=== PATIENT | male | born 1935 | race Two or more races ===

== ENCOUNTER 2017-08-30 11:52 | Inpatient (IN) | payer OTHER ==
[~2017-08-30] VITALS: Ht 182.9 cm; Wt 122.0 kg
[~2017-08-30 11:52] MED LIST: AVODART0.5 MG PO; CIPRO500 MG PO; FOSINOPRIL SODI20 MG PO; TRIAMTERENE/HCT1 CA1 PO
[2017-08-30] MEDS ORDERED: LASIX20 MG (12:22)
[2017-08-30] MEDS ORDERED: TOPROL XL25 M1 (12:23)
== END 2017-09-28 16:21 | disposition expired | DRG 871 ==
LOC: ER 11:52 → ICU-2 16:07 → ICU 09-01 21:23 → MEDJ 09-10 13:41 → MEDI 09-10 13:41 → MEDJ 09-28 16:21
PROC: 4A033R1 Measurement of Arterial Saturation, Peripheral, Percutaneous Approach (ICD-10-PCS; principal; 2017-08-30)
PROC: 3E0F7GC Introduction of Other Therapeutic Substance into Respiratory Tract, Via Natural or Artificial Opening (ICD-10-PCS; 2017-08-30)
PROC: BT43ZZZ Ultrasonography of Bilateral Kidneys (ICD-10-PCS; 2017-08-30)
PROC: BW24ZZZ Computerized Tomography (CT Scan) of Chest and Abdomen (ICD-10-PCS; 2017-09-01)
PROC: B246ZZZ Ultrasonography of Right and Left Heart (ICD-10-PCS; 2017-09-01)
PROC: 05H433Z Insertion of Infusion Device into Left Innominate Vein, Percutaneous Approach (ICD-10-PCS; 2017-09-02)
PROC: 8E0ZXY6 Isolation (ICD-10-PCS; 2017-09-04)
PROC: 3E0336Z Introduction of Nutritional Substance into Peripheral Vein, Percutaneous Approach (ICD-10-PCS; 2017-09-17)
PROC: 30233N1 Transfusion of Nonautologous Red Blood Cells into Peripheral Vein, Percutaneous Approach (ICD-10-PCS; 2017-09-17)
PROC: BW21ZZZ Computerized Tomography (CT Scan) of Abdomen and Pelvis (ICD-10-PCS; 2017-09-19)
PROC: 4A12X4Z Monitoring of Cardiac Electrical Activity, External Approach (ICD-10-PCS; 2017-09-23)
PROC: 30233R1 Transfusion of Nonautologous Platelets into Peripheral Vein, Percutaneous Approach (ICD-10-PCS; 2017-09-23)
PROC: 5A09557 Assistance with Respiratory Ventilation, Greater than 96 Consecutive Hours, Continuous Positive Airway Pressure (ICD-10-PCS; 2017-09-23)
PROC: 05HM33Z Insertion of Infusion Device into Right Internal Jugular Vein, Percutaneous Approach (ICD-10-PCS; 2017-09-24)
PROC: B543ZZA Ultrasonography of Right Jugular Veins, Guidance (ICD-10-PCS; 2017-09-24)
PROC: 5A1D70Z Performance of Urinary Filtration, Intermittent, Less than 6 Hours Per Day (ICD-10-PCS; 2017-09-24)
DX: A41.9 Sepsis, unspecified organism (principal); J18.9 Pneumonia, unspecified organism; N39.0 Urinary tract infection, site not specified; N18.4 Chronic kidney disease, stage 4 (severe); N17.8 Other acute kidney failure; B37.0 Candidal stomatitis; J90 Pleural effusion, not elsewhere classified; K56.0 Paralytic ileus; G40.802 Other epilepsy, not intractable, without status epilepticus; K92.2 Gastrointestinal hemorrhage, unspecified; N13.1 Hydronephrosis with ureteral stricture, not elsewhere classified; B37.49 Other urogenital candidiasis; R09.02 Hypoxemia; I12.9 Hypertensive chronic kidney disease with stage 1 through stage 4 chronic kidney disease, or unspecified chronic kidney disease; E86.0 Dehydration; Z74.01 Bed confinement status; B96.20 Unspecified Escherichia coli [E. coli] as the cause of diseases classified elsewhere; Z16.12 Extended spectrum beta lactamase (ESBL) resistance; N40.1 Benign prostatic hyperplasia with lower urinary tract symptoms; R31.0 Gross hematuria; D69.59 Other secondary thrombocytopenia; Z86.73 Personal history of transient ischemic attack (TIA), and cerebral infarction without residual deficits; R65.20 Severe sepsis without septic shock; B96.5 Pseudomonas (aeruginosa) (mallei) (pseudomallei) as the cause of diseases classified elsewhere; R60.1 Generalized edema; D64.89 Other specified anemias; L89.152 Pressure ulcer of sacral region, stage 2; Z78.1 Physical restraint status